=== PATIENT | female | born 1990 | race African-American/Black ===

== ENCOUNTER 2020-05-23 07:29 | Emergency (ER) | payer OTHER ==
[2020-05-23 07:43] VITALS: BP 105/71; PULSE 81; TEMP 98.5; BMI 23.4
[2020-05-23] MEDS ORDERED: TETRACAINE 0.5% HCL 0.6ML DROPPER.BOTTLE OD ONE (08:12)
[2020-05-23] MEDS ORDERED: FLUORESCEIN NA 1 EA STRIP OD ONE (08:12)
[2020-05-23] MEDS ORDERED: TETRACAINE 0.5% OPHTH SOLN 2 ML BOTTLE ONE (08:15)
[2020-05-23] MEDS ORDERED: FLUORESCEIN NA 1 EA STRIP ONE (08:15)
--- NOTE | 2020-05-23 08:20 | PDOC ---
Attending Attestation - Resident Resident Name: Melania Sood - ED Attending Attestation I have performed the following: I have examined & evaluated the patient, The case was reviewed & discussed with the resident, I agree w/resident's findings & plan, Exceptions are as noted - HPI HPI: 30 yo F with no significant PMH presents with R eye irritation. She states that her 10 month old daughter scratched her eye last night, she has had pain since then, and did not resolve. She noticed redness and increased tearing. No purulent drainage. - Physicial Exam PE: GENERAL: Awake, alert, and fully oriented, in no acute distress HEAD: No signs of trauma EYES: R eye with conjunctival injection, increased lacrimation. Fluorescein stain of R eye with increased medial uptake. PERRLA, EOMI, sclera anicteric, L conjunctiva clear. ENT: Auricles normal inspection, hearing grossly normal, nares patent, oropharynx clear without exudates. Moist mucosa NECK: Normal ROM, supple, no lymphadenopathy, JVD, or masses NEUROLOGICAL: Cranial nerves II through XII grossly intact. Normal speech, normal gait. Motor and sensation intact SKIN: Warm, dry, normal turgor, no rashes or lesions noted. - Medical Decision Making Will treat with topical antibiotics, topical ketorolac. Stable for DC home. Discharge - Discharge Information Problems reviewed: Yes Clinical Impression/Diagnosis: Corneal abrasion Qualifiers: Encounter type: initial encounter Laterality: right Qualified Code(s): S05.01XA - Injury of conjunctiva and corneal abrasion without foreign body, right eye, initial encounter Condition: Stable Disposition: HOME - Additional Discharge Information Prescriptions: Ketorolac Tromethamine [Acular] 1 drop OD QID #1 bottle Erythromycin 0.5% Eye Ointment [Erythromycin 0.5% Eye Ointment -] 1 applic OD QID #1 tube - Follow up/Referral Referrals: [facility] [place] [facility] at [place] [Provider Group] Frank Garcia [Non Staff, Medical] - - Patient Discharge Instructions Patient Printed Discharge Instructions: DI for Corneal Abrasion Additional Instructions: Additional Instructions: Please return to the emergency department with any new or worsening symptoms or concerns including fever, redness of skin around your eye, worsening pain. Please follow up with an route aide within 48 hours. Inform them you have been to the ER for a corneal abrasion and need urgent followup Please take the Erythromycin ointment 4 times a fay for 5 days by placing 1/2 inch of the ointment on your lower eye lid You may take the medication toradol (Acular) eye drops; please take 1 drop up to every 6 hours as needed for pain control. Do not exceed taking the medication more than 5 days We have secured you an appointment with Frank Corona located at [address] [place] [address] in [place], [place] today. Please go for evaluation - Post Discharge Activity Work/Back to School Note: Back to Work
--- NOTE | 2020-05-23 08:34 | PDOC ---
History of Present Illness <Sharri Parham - Last Filed: 05/23/20 09:30> - History of Present Illness Initial Comments: 05/23/20 08:34 HPI: 30 y/o withy no pmh presenting with right eye irritation. Her 10month old daughter scratched her in the eye and she reports pain and inability to open her eye with increased lacrimation. Denies bleeding or purulence from the eye. Otherwise no medical complaints. PMHx: as noted above ROS: as noted SHx: Denies tobacco use; no alcohol use; no rec drugs Allergies: NKDA ROS: GENERAL/CONSTITUTIONAL: No fever or chills. No weakness. HEAD, EYES, EARS, NOSE AND THROAT: +change in vision. No ear pain or discharge. No sore throat. CARDIOVASCULAR: No chest pain or shortness of breath RESPIRATORY: No cough, wheezing, or hemoptysis. GASTROINTESTINAL: No nausea, vomiting, diarrhea or constipation. GENITOURINARY: No dysuria, frequency, or change in urination. MUSCULOSKELETAL: No joint or muscle swelling or pain. No neck or back pain. SKIN: No rash NEUROLOGIC: No headache, vertigo, loss of consciousness, or change in strength/sensation. ENDOCRINE: No increased thirst. No abnormal weight change HEMATOLOGIC/LYMPHATIC: No anemia, easy bleeding, or history of blood clots. ALLERGIC/IMMUNOLOGIC: No hives or skin allergy. PE: GENERAL: Awake, alert, and fully oriented, no acute distress HEAD: No signs of trauma, normocephalic, atraumatic EYES: EOMI, right eye with conjunctival injection and 4 o'clock position corneal defect, woodlamp exam with corneal abrasion in same area; PERRLA, right eye 20/70 visual acuity, left eye 20/25 acuity, left eye with no injection ENT: Auricles normal inspection, hearing grossly normal, nares patent, oropharynx clear without exudates. Moist mucosa NECK: Normal ROM, no lymphadenopathy LUNGS: No increased work of breathing, symmetrical chest rise HEART: Regular rate, regular rhythm ABDOMEN: Soft, nondistended MUSCULOSKELETAL: FROM NEUROLOGICAL: Cranial nerves II through XII grossly intact. Normal speech, normal gait, no focal sensorimotor deficits SKIN: Warm, Dry, normal turgor, no rashes or lesions noted <Melania Sood - Last Filed: 05/23/20 15:43> - General Chief Complaint: Eye Problem Stated Complaint: PAIN TO RIGHT EYE Time Seen by Provider: 05/23/20 07:58 Past History <Sharri Parham - Last Filed: 05/23/20 09:30> - Psycho-Social/Smoking History Smoking History: Never smoked - Substance Abuse Hx (Audit-C & DAST Scrn) How often the patient has a drink containing alcohol: Never Score: In Men: 4 or > Positive; In Women: 3 or > Positive: 0 Screen Result (Pos requires Nsg. Audit-10AR): Negative In the last yr the pt used illegal drug/Rx for NonMed reason: No Score: Yes response is considered Positive: 0 Screen Result (Positive result requires Nsg. DAST-10): Negative <Melania Sood - Last Filed: 05/23/20 15:43> - Medical History Allergies/Adverse Reactions: Allergies Allergy/AdvReac Type Severity Reaction Status Date / Time No Known Allergies Allergy Verified 05/23/20 07:43 Home Medications: Ambulatory Orders Erythromycin 0.5% Eye Ointment [Erythromycin 0.5% Eye Ointment -] 1 applic OD QID #1 tube 05/23/20 Ketorolac Tromethamine [Acular] 1 drop OD QID #1 bottle 05/23/20 *Physical Exam - Vital Signs Last Vital Signs Temp Pulse Resp BP Pulse Ox 98.5 F 81 16 105/71 99 05/23/20 07:33 05/23/20 07:33 05/23/20 07:33 05/23/20 07:33 05/23/20 07:33 <Sharri Parham - Last Filed: 05/23/20 09:30> - Vital Signs Last Vital Signs Temp Pulse Resp BP Pulse Ox 98.5 F 81 16 105/71 99 05/23/20 07:33 05/23/20 07:33 05/23/20 07:33 05/23/20 07:33 05/23/20 07:33 <Melania Sood - Last Filed: 05/23/20 15:43> ED Treatment Course - Medications Given in the ED: ED Medications Discontinued Medications Generic Name Dose Route Start Last Admin Trade Name Freq PRN Reason Stop Dose Admin Fluorescein Sodium 1 ea 05/23/20 08:12 05/23/20 08:22 Fluorets - OD 05/23/20 08:13 1 ea ONCE ONE Administration Tetracaine HCl 1 drop 05/23/20 08:12 05/23/20 08:22 Tetravisc 0.5% Eye Drops - OD 05/23/20 08:13 1 drop ONCE ONE Administration <Sharri Parham - Last Filed: 05/23/20 09:30> - Medications Given in the ED: ED Medications Discontinued Medications Generic Name Dose Route Start Last Admin Trade Name Sofia PRN Reason Stop Dose Admin Fluorescein Sodium 1 ea 05/23/20 08:12 05/23/20 08:22 Fluorets - OD 05/23/20 08:13 1 ea ONCE ONE Administration Tetracaine HCl 1 drop 05/23/20 08:12 05/23/20 08:22 Tetravisc 0.5% Eye Drops - OD 05/23/20 08:13 1 drop ONCE ONE Administration <Melania Sood - Last Filed: 05/23/20 15:43> Medical Decision Making - Medical Decision Making 05/23/20 08:48 30 y/o withy no pmh presenting with right eye irritation concerning for corneal abrasion. VSS, AF. PE with EOMI, right eye with conjunctival injection and 4 o'clock position corneal defect, woodlamp exam with corneal abrasion in same area; PERRLA, right eye 20/70 visual acuity, left eye 20/25 acuity, left eye with no injection -tetracaine -erythromycin ointment -DC with ophtho followup; all questions answered <Melania Sood - Last Filed: 05/23/20 15:43> Discharge <Sharri Parham - Last Filed: 05/23/20 09:30> - Discharge Information Problems reviewed: Yes <Melania Sood - Last Filed: 05/23/20 15:43> - Discharge Information Clinical Impression/Diagnosis: Corneal abrasion Qualifiers: Encounter type: initial encounter Laterality: right Qualified Code(s): S05.01XA - Injury of conjunctiva and corneal abrasion without foreign body, right eye, initial encounter Condition: Stable Disposition: HOME - Additional Discharge Information Prescriptions: Ketorolac Tromethamine [Acular] 1 drop OD QID #1 bottle Erythromycin 0.5% Eye Ointment [Erythromycin 0.5% Eye Ointment -] 1 applic OD QID #1 tube - Follow up/Referral Referrals: [facility] [place] [facility] at [place] [Provider Group] Frank Garcia [Non Staff, Medical] - - Patient Discharge Instructions Patient Printed Discharge Instructions: DI for Corneal Abrasion Additional Instructions: Additional Instructions: Please return to the emergency department with any new or worsening symptoms or concerns including fever, redness of skin around your eye, worsening pain. Please follow up with an loss prevention specialist within 48 hours. Inform them you have been to the ER for a corneal abrasion and need urgent followup Please take the Erythromycin ointment 4 times a fay for 5 days by placing 1/2 inch of the ointment on your lower eye lid You may take the medication toradol (Acular) eye drops; please take 1 drop up to every 6 hours as needed for pain control. Do not exceed taking the medication more than 5 days We have secured you an appointment with Frank Corona located at [address] [place] [address] in [place], [place] today. Please go for evaluation - Post Discharge Activity Work/Back to School Note: Back to Work
[2020-05-23] MEDS ORDERED: ERYTHROMYCIN 0.5% OPHTHALMIC OINTMENT 3.5 GM TUBE OD ONE (08:40)
[2020-05-23] MEDS ORDERED: ERYTHROMYCIN 0.5% OPHTHALMIC OINTMENT 3.5 GM TUBE ONE (09:01)
--- NOTE | 2020-05-23 09:38 | PDOC ---
*Physical Exam - Vital Signs Last Vital Signs Temp Pulse Resp BP Pulse Ox 98.5 F 81 16 105/71 99 05/23/20 07:33 05/23/20 07:33 05/23/20 07:33 05/23/20 07:33 05/23/20 07:33 - Physical Exam 05/23/20 09:37 Discussed case with ophthalmology Dr. Garcia, recommends patient can proceed to his office after ER visit and discharge today. Will advise patient that she should proceed to ophthalmology from the ER. ED Treatment Course - Medications Given in the ED: ED Medications Discontinued Medications Generic Name Dose Route Start Last Admin Trade Name Sofia PRN Reason Stop Dose Admin Fluorescein Sodium 1 ea 05/23/20 08:12 05/23/20 08:22 Fluorets - OD 05/23/20 08:13 1 ea ONCE ONE Administration Tetracaine HCl 1 drop 05/23/20 08:12 05/23/20 08:22 Tetravisc 0.5% Eye Drops - OD 05/23/20 08:13 1 drop ONCE ONE Administration Discharge - Discharge Information Problems reviewed: Yes Clinical Impression/Diagnosis: Corneal abrasion Qualifiers: Encounter type: initial encounter Laterality: right Qualified Code(s): S05.01XA - Injury of conjunctiva and corneal abrasion without foreign body, right eye, initial encounter Condition: Stable Disposition: HOME - Additional Discharge Information Prescriptions: Ketorolac Tromethamine [Acular] 1 drop OD QID #1 bottle Erythromycin 0.5% Eye Ointment [Erythromycin 0.5% Eye Ointment -] 1 applic OD QID #1 tube - Follow up/Referral Referrals: [facility] [place] [facility] at [place] [Provider Group] Frank Garcia [Non Staff, Medical] - - Patient Discharge Instructions Patient Printed Discharge Instructions: DI for Corneal Abrasion Additional Instructions: Additional Instructions: Please return to the emergency department with any new or worsening symptoms or concerns including fever, redness of skin around your eye, worsening pain. Please follow up with an piling setter within 48 hours. Inform them you have been to the ER for a corneal abrasion and need urgent followup Please take the Erythromycin ointment 4 times a fay for 5 days by placing 1/2 inch of the ointment on your lower eye lid You may take the medication toradol (Acular) eye drops; please take 1 drop up to every 6 hours as needed for pain control. Do not exceed taking the medication more than 5 days We have secured you an appointment with Frank Corona located at [address] [place] [address] in [place], [place] today. Please go for evaluation - Post Discharge Activity Work/Back to School Note: Back to Work
== END 2020-05-23 09:30 | disposition home or self-care (01) ==
LOC: JER 07:29
DX: S05.01XA Injury of conjunctiva and corneal abrasion without foreign body, right eye, initial encounter (principal); Y99.9 Unspecified external cause status
CPT/HCPCS: 99283-25